=== PATIENT | female | born 1985 | race Caucasian/White ===

== ENCOUNTER → 2019-09-03 | Outpatient (CLI) | payer OTHER ==
[2019-09-04 02:40] LABS: RUBEOLA (MEASLES) IGG >300.0 AU/mL (Immune >16.4)
== END | disposition home or self-care (01) ==
LOC: EMPHLTH 11:08
PROVIDERS: ATTEND Internal Medicine
DX: Z02.1 Encounter for pre-employment examination (principal)
CPT/HCPCS: 86706; 86735; 86762; 86765; 86787

== ENCOUNTER 2020-04-02 14:12 | Emergency (ER) | payer OTHER ==
[~2020-04-02] VITALS: Ht 160 cm; Wt 66.8 kg
[2020-04-02] MEDS ORDERED: ALBU8HFA IH (14:16)
[2020-04-02] MEDS ORDERED: MULT1CAP32 PO (14:16)
[2020-04-02 14:20] VITALS: BP 124/94
== END 2020-04-02 16:49 | disposition home or self-care (01) ==
LOC: EMS 14:14
DX: R05 Cough (principal); R50.9 Fever, unspecified; Z20.828 Contact with and (suspected) exposure to other viral communicable diseases
CPT/HCPCS: 71045; 99284; U0003